=== PATIENT | female | born 1950 | race Two or more races ===

== ENCOUNTER → 2021-05-21 09:36 | Outpatient (BNVA) | payer OTHER, SELFPAY | PROVIDERS: PCP Internal Medicine; Visit Provider Surgery Vascular Surgery ==

== ENCOUNTER 2021-06-05 12:48 | Outpatient (REF) | payer OTHER, SELFPAY ==
--- NOTE | ~2021-06-05 | US_ITS ---
EXAMINATION: BILATERAL LOWER EXTREMITY VENOUS ULTRASOUND (Reflux Exam) CLINICAL INDICATION: This is a 70-year-old female with venous insufficiency and varicose veins. COMPARISON: None. TECHNIQUE: Color flow triplex imaging and compression Doppler was performed to evaluate both the deep and the superficial systems bilaterally. To evaluate the superficial system, the examination was performed in the upright position. Color-flow Doppler ultrasound and compression ultrasound were utilized. In addition, maneuvers were utilized to demonstrate reflux. FINDINGS: 1. DEEP VENOUS ULTRASOUND OF THE RIGHT LOWER EXTREMITY: Common Femoral Vein: Compressible, normal respiratory variation and augmented flow. Femoral vein: Compressible, normal color flow and augmentation. Popliteal Vein: Compressible, normal augmentation. Deep Reflux: There is no evidence of reflux in the deep system in either the common femoral vein or the popliteal vein. . There is no evidence of a Banuelos's cyst. 2. SUPERFICIAL ULTRASOUND WITH DOPPLER OF RIGHT LOWER EXTREMITY GREAT SAPHENOUS VEIN: Saphenofemoral junction: 1.0 cm. The reflux time is 1252 ms. Mid thigh: 0.5 cm. The reflux time is 2636 ms. Above knee: 0.7 cm. The reflux time is 3020 ms. Below knee: 0.6 cm. There is no reflux at this level. Mid calf: 0.4 cm. The reflux time is 1460 ms. Ankle: 0.4 cm. The reflux time is 1536 ms. GSV REFLUX: There is reflux throughout the great saphenous vein. DUPLICATED GREAT SAPHENOUS VEIN: None SMALL SAPHENOUS VEIN: Upper: This portion is not seen to Lower: 0.2 cm. No reflux is seen. SSV REFLUX: No evidence of reflux. VEIN OF GIACOMINI: None Imaged. PERFORATORS: None Imaged VARICOSITIES: There are 0.5, 0.6, 0.7 cm varicose veins in the calf with greater than 500 ms of reflux. The 0.7 cm varicose veins in the proximal calf have a reflux time of 1844 ms. The mid calf varicose veins measuring 0.6 cm the reflux time of 2044 ms. There are right-sided varicosities originating from the mid small saphenous vein measures 0.8 cm with the reflux time of 2624 ms. There is a popliteal vein varicosity measuring 0.9 cm without reflux. There is a lymph node measuring 2.4 cm in the right groin. 3. DEEP VENOUS ULTRASOUND OF THE LEFT LOWER EXTREMITY: Common Femoral Vein: Compressible, normal respiratory variation and augmented flow. Femoral vein: Compressible, normal color flow and augmentation. Popliteal Vein: Compressible, normal augmentation. Deep Reflux: There is no evidence of reflux in the deep system in either the common femoral vein or the popliteal vein. There is no evidence of a Banuelos's cyst. 4. SUPERFICIAL ULTRASOUND WITH DOPPLER OF LEFT LOWER EXTREMITY GREAT SAPHENOUS VEIN: Saphenofemoral junction: 0.6 cm. There is no reflux at the junction. Mid thigh: 0.2 cm. There is no reflux. Above knee: 0.3 cm. There is no reflux at this level and below. Below knee: 0.2 cm Mid calf: 0.2 cm Ankle: 0.2 cm GSV REFLUX: There is an isolated segment of proximal thigh reflux. There is no reflux at the junction. There is no reflux from the mid thigh downward. DUPLICATED GREAT SAPHENOUS VEIN: None SMALL SAPHENOUS VEIN: Upper: Is not seen Lower: 0.1 cm. There is no reflux. SSV REFLUX: No evidence of reflux. VEIN OF GIACOMINI: None Imaged. PERFORATORS: None Imaged VARICOSITIES: There are 0.5 cm proximal thigh varicose veins with reflux time of 3048 ms. US/US venous duplex LE BI IMPRESSION: 1. There is a patent right great saphenous vein with reflux at the saphenofemoral junction and extending downward. 2. There is a patent right small saphenous vein without evidence of reflux. It is not seen at the junction. 3. There are right mid calf perforators measuring 0.4 cm without reflux. 4. There are calf varicose veins measuring 0.5 cm, 0.6 cm, 0.7 cm with greater than 500 ms of reflux. There are varicose veins seen off the cyst right small saphenous vein and right popliteal vein. 5. There is a patent left great saphenous vein without evidence of reflux at the junction. There is no reflux from the mid thigh downward. 6. There is a patent left small saphenous vein without reflux. Small saphenous vein is not seen at the junction. 7. There are 0.5 cm proximal thigh varicose veins with 3048 ms of reflux.
== END 2021-06-05 12:49 | disposition home or self-care (01) ==
LOC: HO.US 12:48
PROVIDERS: PCP Internal Medicine; Visit Provider Surgery Vascular Surgery
DX: I83.11 Varicose veins of right lower extremity with inflammation (principal)
CPT/HCPCS: 93970

== ENCOUNTER → 2021-06-19 12:53 | Outpatient (BNVA) | payer OTHER, SELFPAY | PROVIDERS: PCP Internal Medicine; Visit Provider Surgery Vascular Surgery ==

== ENCOUNTER → 2021-07-14 13:37 | Outpatient (BNVA) | payer OTHER, SELFPAY | PROVIDERS: PCP Internal Medicine; Visit Provider Surgery Vascular Surgery | DX: I83.11 Varicose veins of right lower extremity with inflammation (principal) | CPT/HCPCS: 36482 ==

== ENCOUNTER 2021-07-22 13:45 | Outpatient (REF) | payer MEDICARE, SELFPAY ==
--- NOTE | ~2021-07-22 | US_ITS ---
EXAMINATION: US VENOUS ULTRASOUND WITH DOPPLER LOWER EXTREMITY, RIGHT CLINICAL INFORMATION: Post-RFA 07/17/2021. Rule out DVT. COMPARISON: None TECHNIQUE: Ultrasound of the deep veins is performed from the hip to the calf with compression sonography and color and pulse Doppler assessment. Spectral analysis with color-flow imaging is performed. FINDINGS: There is normal venous compression and respiratory variation and augmented flow. The visualized common femoral vein, superficial femoral vein, profunda femoral vein, popliteal vein, and the trifurcation region shows no evidence of deep venous thrombosis. There is echogenic material seen in the right greater saphenous vein post RFA. This extends to 0.3 cm from the saphenofemoral junction. US/US venous duplex LE RT IMPRESSION: No DVT demonstrated in the right lower extremity.
== END 2021-07-22 13:46 | disposition home or self-care (01) ==
LOC: HO.HMGCX 13:45
PROVIDERS: PCP Internal Medicine; Visit Provider Surgery Vascular Surgery
DX: M79.604 Pain in right leg (principal)
CPT/HCPCS: 93971

== ENCOUNTER → 2021-07-29 13:22 | Outpatient (BNVA) | payer MEDICARE, SELFPAY | PROVIDERS: PCP Internal Medicine; Visit Provider Surgery Vascular Surgery | DX: I83.12 Varicose veins of left lower extremity with inflammation (principal) | CPT/HCPCS: 99212 ==

== ENCOUNTER 2021-08-29 16:16 | Outpatient (REF) | payer MEDICARE, SELFPAY ==
--- NOTE | ~2021-08-29 | MM_ITS ---
EXAMINATION: MM SCREENING DIGITAL BREAST TOMOSYNTHESIS, BILATERAL CLINICAL INFORMATION: Screening. Asymptomatic. Prior outside mammography from [place] unavailable. The lifetime risk of breast cancer based on the Tyrer-Cuzick Model is 4%. COMPARISON: None. TECHNIQUE: Digital breast tomosynthesis is performed in both the craniocaudal and mediolateral oblique views along with computer-aided detection (CAD). Synthesized 2D images are generated from the tomosynthesis. FINDINGS: There are scattered areas of fibroglandular density (ACR BI-RADS breast composition Category b). There are no significant masses, abnormal calcifications, or other abnormalities. The axilla and skin contours are unremarkable. MM/MM tomosynthesis screening BI IMPRESSION: No mammographic evidence of malignancy. ASSESSMENT: BI-RADS 1: Negative RECOMMENDATION: Routine annual mammography screening. This patient's information was entered into a reminder system with a target due date for their next mammogram.
== END 2021-08-29 16:17 | disposition home or self-care (01) ==
LOC: HO.MAMMO 16:16
PROVIDERS: Visit Provider Internal Medicine
DX: Z12.31 Encounter for screening mammogram for malignant neoplasm of breast (principal)
CPT/HCPCS: 77063; 77067

== ENCOUNTER → 2021-10-10 08:07 | Outpatient (BNVA) | payer MEDICARE, SELFPAY | PROVIDERS: PCP Internal Medicine; Visit Provider Surgery Vascular Surgery | DX: I83.12 Varicose veins of left lower extremity with inflammation (principal) | CPT/HCPCS: 37766 ==

== ENCOUNTER → 2021-10-21 09:16 | Outpatient (BNVA) | payer MEDICARE, SELFPAY | PROVIDERS: PCP Internal Medicine; Visit Provider Surgery Vascular Surgery | DX: I83.12 Varicose veins of left lower extremity with inflammation (principal) | CPT/HCPCS: 99212 ==

== ENCOUNTER 2025-04-26 08:59 | Outpatient (AMB) | payer MEDICARE, SELFPAY ==
--- NOTE | 2025-04-26 09:02 | A.OFFPC_ITS ---
Vital Signs 3 04/26/25 09:03 04/26/25 09:32 Height 5 ft 6 in Weight 124 lb 6 oz BMI 20.1 BP 140/76 H 144/82 H Blood Pressure Location Lt brachial Lt brachial Position Sitting Sitting Pulse 104 H Pulse Source Pulse Oximeter Pulse Oximetry (%) 91 L 96 Oxygen Delivery Method Room Air Room Air Intake Visit Reasons: RISK ANALYST-PE Order Taker Required: No Order Taker Name: bala khan Accompanied by: grand raymond Allergies Penicillins Allergy (Severe, Verified 04/26/25 09:14) hives Medication List - Last Reconciled 04/26/25 by Keisha Ramos PA-C No Known Home Meds Tobacco use date assessed: 05/15/21 Fall risk assessment: No Falls in past year Last assessed Fall Risk: 04/26/25 Dental Screening Dental Screen Date: 04/26/25 Did you have a dental visit in the last 12 months?: No Did you have a dental problem in the last 6 months where you did not have access to dental care?: No Was dental information given to patient?: No HPI RISK ANALYST-PE 2 HPI0 Details 74 year old female coming to the office for the first time. She presents with her granddaughter who provider translation for the duration of this visit and formal interpretation declined. Presenting with a leg ulcer and symptoms of anxiety and depression. The leg ulcer has persisted since a surgery for a blood clot two years ago, with self- management and topical treatment currently in place. The patient has a history of arterial disease, with no current vascular surgery follow-up. Anxiety and depression were identified through screening, with a history of panic attacks that have resolved. Sleep is adequate, but appetite is inconsistent. Family is also concerned about sudden outbursts of agitation and aggression concerning for possible dementia. She does not typically remember these episodes but can become quite violent. eye doctor: Referral placed [facility] Medical History Stage II pressure ulcer of right ankle Allergic rhinitis Peripheral arterial disease Panic attacks Surgical History History of tooth extraction Family History Mother Arthritis CAD (coronary artery disease) Father No problems noted. Social History Household Members: Family Housing: Apartment Are you a primary disabilities caregiver to a significant other at home: No Do you presently have visiting nurse or other home services: No Alcohol intake: current Alcohol intake frequency: holidays/special occasions only Alcohol type: beer Patient Tobacco Use Status: Never used Tobacco e-Cigarette/Vaping Use: Never Used Second Hand Smoke Exposure: No service: No Current occupational status: disabled Cognitive needs: No Hearing needs: Yes Vision needs: Yes Questionnaire PHQ-9 Over the last 2 weeks, how often have you been bothered by any of the following problems? 1. Little interest or pleasure in doing things: nearly every day 2. Feeling down, depressed, or hopeless: more than half the days 3. Trouble falling or staying asleep, or sleeping too much: nearly every day 4. Feeling tired or having little energy: more than half the days 5. Poor appetite or overeating: nearly every day 6. Feeling bad about yourself - or that you are a failure or have let yourself or your family down: not at all 7. Trouble concentrating on things, such as reading the newspaper or watching television: not at all 8. Moving or speaking so slowly that other people could have noticed. Or the opposite - being so fidgety or restless that you have been moving around a lot more than usual: several days 9. Thoughts that you would be better off or of hurting yourself in some way: not at all Total score: 14 Depression Screening Interpretation: Positive Depression Screening Follow-up: Existing condition and In treatment Depression Screening Done: Yes 81972 - PHQ-9 Billing: Yes Source: Developed by Drs. Carlos Donohue, Fay Hines, García Bryant and colleagues, with an educational sriram from [employer]. Thrive Questionnaire Date Thrive assessed: 05/15/21 I am a: Parent/Caregiver What is your living situation today?: I have a steady place to live Within the past 12 months, did the food you bought not last and you didn't have the money to get more?: Sometimes True Within the past 12 months, did you worry whether your food would run out before you got money to buy more?: Sometimes True Do you have trouble paying for medicines?: No Do you have trouble getting transportation to medical appointments?: No Do you have trouble paying your heating and electricity bill?: No Do you have trouble taking care of your child, family member or friend?: Yes Do you have trouble with day-to-day activities such as bathing, preparing meals, shopping, managing finances, etc.?: Yes Are you currently unemployed and looking for a job?: No Are you interested in more education?: No Please select the resources that you would like help with: Care for elder or disabled Currently or been in a relationship where the following occur: No concerns reported THRIVE Score: 2 AUDIT C Alcohol Use Questionnaire (AUDIT-C) 1. How often do you have a drink containing alcohol?: Never Total Score: 0 NORM-7 AMB Questionnaire NORM-7 Date NORM - 7 assessed: 05/15/21 Feeling nervous, anxious, or on edge: 3 = Nearly every day Not being able to stop or control worryin = Nearly every day Worrying too much about different things: 3 = Nearly every day Trouble relaxin = Nearly every day Being so restless that it is hard to sit still: 3 = Nearly every day Becoming easily annoyed or irritable: 3 = Nearly every day Feeling afraid as if something awful might happen: 3 = Nearly every day Total NORM-7 score (0-4 normal; 5-9 mild; 10-14 moderate; 15-21 severe): 21 Source: Developed by Drs. Carlos Donohue, Fay Hines, García Bryant and colleagues, with an educational sriram from [employer]. NORM-7 Assessment Billing NORM-7 Assessment Tool: NORM-7 Assessment 47180 Review of Systems Const Denies body aches, Denies chills, Denies fever(s), Denies headache(s) and Denies poor appetite Eyes Reports no additional complaints ENT Denies dysphagia, Denies dizziness, Denies headache(s) and Denies odynophagia Card Denies chest pain, Denies syncope, Denies edema, Denies irregular heart rhythm, Denies lightheadedness and Denies dyspnea Resp Denies cough and Denies dyspnea GI Denies abdominal pain, Denies constipation, Denies dysphagia, Denies diarrhea, Denies nausea, Denies odynophagia and Denies vomiting Reports no additional complaints Musc Reports no additional complaints and Denies abnormal gait Skin/Breast Reports system reviewed and no additional complaints, except as documented Neuro Denies abnormal gait, Denies dizziness, Denies syncope and Denies headache(s) Psych Reports no additional complaints Physical exam (Primary Care) Vital Signs: Last Vital Signs Pulse 104 H 04/26/25 09:03 BP 144/82 H 04/26/25 09:32 Pulse Ox 96 04/26/25 09:32 Oxygen Delivery Method Room Air 04/26/25 09:32 BMI result Body Mass Index 20.1 Tobacco/Smoking Status: Tobacco use Status Tobacco use date assessed 05/15/21 04/26/25 09:13 Patient Tobacco Use Status Never used Tobacco 04/26/25 09:13 e-Cigarette/Vaping Use Never Used 04/26/25 09:13 PHQ-9: PHQ-9 Score PHQ-9: Total score 14 04/26/25 16:51 Depression Screening Interpretation: Positive Depression Screening Follow-up: Existing condition and In treatment Thrive Assessment: Date of Thrive Assessment Date Thrive assessed 05/15/21 04/26/25 09:13 Currently or been in a relationship where the following occur: No concerns reported Const General: cooperative, healthy appearing, comfortable and no acute distress Orientation/consciousness: patient oriented x3 HENMT Head: Yes normocephalic Ears: hearing grossly normal bilaterally General nose exam: Normal external nose present Eyes General: appearance normal, both eyes and all related structures Conjunctivae: conjunctivae normal Neck Neck: Yes full ROM and Yes no lymphadenopathy Resp Effort & Inspection: normal respiratory effort Auscultation: clear to auscultation bilaterally, no crackles, no rales, no rhonchi and no wheezes Cardio Rate: regular rate Rhythm: regular rhythm Skin Other: Neuro General: patient oriented x3 Gait exam (Neuro): Normal gait present Extrem General: Yes normal to inspection, Yes full ROM and No edema Psych Affect: normal affect Attitude: cooperative Insight: Good insight present (Psych) Judgement: Good judgement present (Psych) Coding Level of Care Code New Pt Level 4 (58106) Diagnoses Stage II pressure ulcer of right ankle L89.512 Peripheral arterial disease I73.9 Agitation R45.1 Memory impairment R41.3 Blood pressure elevated without history of HTN R03.0 Additional Codes NORM-7 Assessment Billing - NORM-7 Assessment Tool: NORM-7 Assessment 03980 ([id number]) PHQ-9 - 97875 - PHQ-9 Billing: Yes ([id number]) Assessment & Plan Assessment & Plan (1) Stage II pressure ulcer of right ankle: Code(s): L89.512 - Pressure ulcer of right ankle, stage 2 Category: Medical Plan: For the pressure ulcer and was evaluated by myself and Dr. Delatorre. There is significant erythema around the foot concerning for infection plan to give doxycycline b.i.d. for 7 days. For the pressure ulcer which appears to be chronic and likely ongoing since [address] an urgent referral to wound care as well as vascular surgery. She was previously following with vascular surgery and I plan to send a message to the provider to discuss this case as well. We discussed nonadherent dressings which will be applied until patient can see wound care or vascular surgery (2) Peripheral arterial disease: Code(s): I73.9 - Peripheral vascular disease, unspecified Category: Medical Plan: See above (3) Agitation: Code(s): R45.1 - Restlessness and agitation Category: Medical Plan: For agitation along with anxiety and depression plan to trial mirtazapine 7.5 mg at bedtime. Her family we will continue to monitor her symptoms and side effects of this medication. (4) Memory impairment: Code(s): R41.3 - Other amnesia Category: Medical Plan: Referral was placed to Neurology at family request. (5) Blood pressure elevated without history of HTN: Code(s): R03.0 - Elevated blood-pressure reading, without diagnosis of hypertension Category: Medical Plan: Blood pressure mildly elevated in the office 144/82 she is following up in 2 weeks for a wound check and consider blood pressure medication at that time. Avoid salt intake and encourage healthy diet and regular exercise. Plan This note was constructed using voice recognition software. While every effort has been made to ensure accuracy and oil burner repairer, still areas may have been included sometimes these areas may affect the content or meeting of the given symptoms. Total time spent caring for the patient today was 45 minutes. This includes time spent before the visit reviewing the chart, time spent during the visit, and time spent after the visit and documentation. Patient was informed and verbally consented to the use of an ambient scribe for clinic note documentation during this visit. Orders: Orders 2 TSH reflex Free T4 Today R41.3 - Other amnesia, Z13.29 - Encounter for screening for other suspected endocrine disorder Vitamin B12 and Folate Today R41.3 - Other amnesia, Z13.21 - Encounter for screening for nutritional disorder Lipid Panel Today Z13.220 - Encounter for screening for lipoid disorders Complete Blood Count Auto Diff Today I73.9 - Peripheral vascular disease, unspecified, Z00.00 - Encounter for general adult medical examination without abnormal findings Comprehensive Met. Panel Today I73.9 - Peripheral vascular disease, unspecified, Z00.00 - Encounter for general adult medical examination without abnormal findings Vitamin D 25-OH Total Today R41.3 - Other amnesia, Z13.21 - Encounter for screening for nutritional disorder Referrals 2 Vascular Surgery Referral L89.512 - Pressure ulcer of right ankle, stage 2 Wound Care Referral L89.512 - Pressure ulcer of right ankle, stage 2 Neurology Referral R41.3 - Other amnesia, R45.1 - Restlessness and agitation Optometry Referral Z00.00 - Encounter for general adult medical examination without abnormal findings Medications: New 2 mirtazapine 7.5 mg PO BEDTIME 90 tabs 0RF doxycycline hyclate 100 mg PO BID 14 caps 0RF
[2025-04-26 09:03] VITALS: BP 140/76; PULSE 104; O2SAT 91; BMI 20.1
[2025-04-26 09:32] VITALS: BP 144/82; O2SAT 96
== END 2025-04-26 10:16 | disposition home or self-care (01) ==
LOC: HO.HMCH 09:00
PROVIDERS: PCP Internal Medicine
DX: L89.512 Pressure ulcer of right ankle, stage 2 (principal); I73.9 Peripheral vascular disease, unspecified; R45.1 Restlessness and agitation; R41.3 Other amnesia; R03.0 Elevated blood-pressure reading, without diagnosis of hypertension

== ENCOUNTER → 2025-04-26 08:59 | Outpatient (BNVA) | payer MEDICARE, SELFPAY | PROVIDERS: PCP Internal Medicine | DX: L89.512 Pressure ulcer of right ankle, stage 2 (principal); I73.9 Peripheral vascular disease, unspecified; R45.1 Restlessness and agitation; R41.3 Other amnesia; R03.0 Elevated blood-pressure reading, without diagnosis of hypertension; Z13.31 Encounter for screening for depression | CPT/HCPCS: 96127; 99202 ==

== ENCOUNTER 2025-05-11 08:57 | Outpatient (AMB) | payer MEDICARE, SELFPAY ==
--- NOTE | 2025-05-11 08:59 | A.OFFPC_ITS ---
Vital Signs 3 05/11/25 09:01 05/11/25 09:30 Height 5 ft 6 in Weight 126 lb 8 oz BMI 20.4 BP 138/80 130/80 Blood Pressure Location Lt brachial Lt brachial Position Sitting Pulse 89 Pulse Source Pulse Oximeter Temp 97.3 F Temp Source Temporal Artery Scan Pulse Oximetry (%) 98 Oxygen Delivery Method Room Air Intake Visit Reasons: wound check and BP w/ me or Ndissi Intake Note: Patient is here to follow up on Wound check and bp. Fiction And Nonfiction Author Required: Yes Fiction And Nonfiction Author Language: Tar Boiler Name: Braden ([id number]) Information Interpreted: non-clinical & clinical Honing Machine Try Out Setter: Present Accompanied by: Daughter Allergies Penicillins Allergy (Severe, Verified 05/11/25 09:00) hives Tobacco use date assessed: 05/11/25 Fall risk assessment: No Falls in past year Last assessed Fall Risk: 05/11/25 Dental Screening Dental Screen Date: 04/26/25 HPI HPI Comments 2 History of Present Illness0 Details 74 Y/O Female patient who presents to e clinic today for follow up. She is here for f/u on Right leg ulcer, symptoms of anxiety and depression and Poor Appetite. -Right leg Wound: Patient was referred t o Wound Care by PCP. He has an appointment today for wound Debridement. Daughter has been dressing the Wound at Home. Last Wound Clinic visit was 1 week ago. -Blood Pressure: Blood Pressure back to normal Limits. Continue making lifestyle changes; Avoid High Sodium Foods. -Agitation/Anxiety and Poor Appetite: Pt was started on Mirtazapine 7.5 mg. Daughter reports increase appetite and Sleeping well at night. Pt still has mild Agitation in the evenings. Has an appointment with Neuro 08/30/2025. - PAD: She was referred to Vascular surg jessie - pending an appointment. [facility] Medical History Stage II pressure ulcer of right ankle Allergic rhinitis Peripheral arterial disease Panic attacks Surgical History History of tooth extraction Family History Mother Arthritis CAD (coronary artery disease) Father No problems noted. Social History Household Members: Family Housing: Apartment Are you a primary home care consultant to a significant other at home: No Do you presently have visiting nurse or other home services: No Alcohol intake: current Alcohol intake frequency: holidays/special occasions only Alcohol type: beer Patient Tobacco Use Status: Never used Tobacco e-Cigarette/Vaping Use: Never Used Second Hand Smoke Exposure: No service: No Current occupational status: disabled Cognitive needs: No Hearing needs: Yes Vision needs: Yes Questionnaire Thrive Questionnaire Date Thrive assessed: 04/26/25 I am a: Parent/Caregiver What is your living situation today?: I have a steady place to live Within the past 12 months, did the food you bought not last and you didn't have the money to get more?: Sometimes True Within the past 12 months, did you worry whether your food would run out before you got money to buy more?: Sometimes True Do you have trouble paying for medicines?: No Do you have trouble getting transportation to medical appointments?: No Do you have trouble paying your heating and electricity bill?: No Do you have trouble taking care of your child, family member or friend?: Yes Do you have trouble with day-to-day activities such as bathing, preparing meals, shopping, managing finances, etc.?: Yes Are you currently unemployed and looking for a job?: No Are you interested in more education?: No Please select the resources that you would like help with: Care for elder or disabled Currently or been in a relationship where the following occur: No concerns reported THRIVE Score: 2 NORM-7 AMB Questionnaire NORM-7 Date NORM - 7 assessed: 05/11/25 Feeling nervous, anxious, or on edge: 0 = Not at all Not being able to stop or control worryin = Not at all Worrying too much about different things: 0 = Not at all Trouble relaxin = Not at all Being so restless that it is hard to sit still: 0 = Not at all Becoming easily annoyed or irritable: 0 = Not at all Feeling afraid as if something awful might happen: 0 = Not at all Total NORM-7 score (0-4 normal; 5-9 mild; 10-14 moderate; 15-21 severe): 0 Source: Developed by Drs. Carlos Donohue, Fay Hines, García Bryant and colleagues, with an educational sriram from [employer]. Review of Systems Const All systems reviewed & are unremarkable except as noted in HPI and below Physical exam (Primary Care) Vital Signs: Last Vital Signs Temp 97.3 F 05/11/25 09:01 Pulse 89 05/11/25 09:01 BP 130/80 05/11/25 09:30 Pulse Ox 98 05/11/25 09:01 Oxygen Delivery Method Room Air 05/11/25 09:01 BMI result Body Mass Index 20.4 Tobacco/Smoking Status: Tobacco use Status Tobacco use date assessed 05/11/25 05/11/25 09:09 Patient Tobacco Use Status Never used Tobacco 05/11/25 09:09 e-Cigarette/Vaping Use Never Used 05/11/25 09:09 Thrive Assessment: Date of Thrive Assessment Date Thrive assessed 04/26/25 05/11/25 09:09 Currently or been in a relationship where the following occur: No concerns reported Const General: no acute distress Nutritional Appearance: well nourished Orientation/consciousness: patient oriented x3 Limitations: language barrier Resp Effort & Inspection: normal respiratory effort Auscultation: clear to auscultation bilaterally Cardio Heart sounds: S1 normal heart sound present and S2 normal heart sound present Neuro General: patient oriented x3 and gait normal Extrem Other: Right lower extremity: ankle (See Image Above) Psych Speech and movement: Normal speech and movement present Coding Level of Care Code Est Pt Level 4 (55223) Diagnoses Stage II pressure ulcer of right ankle L89.512 Blood pressure elevated without history of HTN R03.0 Agitation R45.1 Time Spent (min) 20 Assessment & Plan Assessment & Plan (1) Stage II pressure ulcer of right ankle: Code(s): L89.512 - Pressure ulcer of right ankle, stage 2 Category: Medical Plan: Managed by Wound Care. Wound improved, better circulation. (2) Blood pressure elevated without history of HTN: Code(s): R03.0 - Elevated blood-pressure reading, without diagnosis of hypertension Category: Medical Plan: Continue to monitor at Home and Keep Log Avoid Foods/Diet high in Sodium. (3) Agitation: Code(s): R45.1 - Restlessness and agitation Category: Medical Plan: Mild Improvement with Mirtazapine - will continue on the same Dose. Improvement on Sleep and Appetite.
[2025-05-11 09:01] VITALS: BP 138/80; PULSE 89; TEMP 36.3; O2SAT 98; BMI 20.4
[2025-05-11 09:30] VITALS: BP 130/80
== END 2025-05-11 11:28 | disposition home or self-care (01) ==
LOC: HO.HMCH 08:57
PROVIDERS: PCP Internal Medicine; Visit Provider Nurse Practitioner Family
DX: L89.512 Pressure ulcer of right ankle, stage 2 (principal); R03.0 Elevated blood-pressure reading, without diagnosis of hypertension; R45.1 Restlessness and agitation

== ENCOUNTER → 2025-05-11 08:57 | Outpatient (BNVA) | payer MEDICARE, SELFPAY | PROVIDERS: PCP Internal Medicine; Visit Provider Nurse Practitioner Family | DX: L89.512 Pressure ulcer of right ankle, stage 2 (principal); R03.0 Elevated blood-pressure reading, without diagnosis of hypertension; R45.1 Restlessness and agitation | CPT/HCPCS: 96127; 99212 ==